=== PATIENT | female | born 1970 | race Caucasian/White ===

== ENCOUNTER → 2016-08-25 | Outpatient (CLI) | payer OTHER ==
--- NOTE | 2016-08-25 12:24 | REP ---
BILATERAL MAMMOGRAM: Family history of breast cancer in the maternal aunt and maternal grandmother. COMPARISON: 02/04/2015 as well as other prior exams. MLO and CC views of bilateral breasts again demonstrate moderately dense fibroglandular tissue. This limits the sensitivity of the mammogram. On the right MLO view, superiorly, there is a rounded density 1.6 cm in diameter which has enlarged. This was felt to represent a cyst by ultrasound on the prior study. I suspect two adjacent nodular opacities posteriorly in the left breast, only seen on the MLO view. These are in the range of 1 cm in diameter. There are no clustered microcalcifications. IMPRESSION: ACR 0 incomplete. Enlarging nodule in the upper right breast seen only on the MLO view is felt to represent an enlarging cyst. Recommend spot compression view, right breast MLO projection as well as an axillary CC view of the right breast. Ultrasound should also be performed. In the left breast, there appear to be two adjacent nodular opacities on the MLO view somewhat superiorly and posteriorly. These are not seen on the CC view. Recommend compression view left breast MLO projection, a left ML view and axillary CC view. Ultrasound should also be performed. BI-RADS/ACR category 0 mammogram, incomplete. Additional imaging and/or prior images are needed before a final assessment can be assigned. This mammogram was interpreted with the aid of an FDA-approved computer-aided detection system. A. Negative x-ray reports should not delay biopsy if a dominant or clinically suspicious mass is present. B. Four to eight percent of cancers are not identified by x-ray. C. Adenosis and dense breasts may obscure an underlying neoplasm. The patient states she/he had a clinical breast exam in August 2016. The patient letter being requested is M0
== END ==
LOC: M WHC 10:37
PROVIDERS: ATTEND Nurse Practitioner Family
DX: Z12.31 Encounter for screening mammogram for malignant neoplasm of breast (principal); R92.8 Other abnormal and inconclusive findings on diagnostic imaging of breast

== ENCOUNTER → 2016-09-12 | Outpatient (CLI) | payer OTHER ==
--- NOTE | 2016-09-13 08:49 | REP ---
DIGITAL DIAGNOSTIC BILATERAL MAMMOGRAPHY WITH CAD AND FOCUSED BILATERAL BREAST SONOGRAPHY: HISTORY: Screening mammography August 25, 2016 BIRADS category 0 due to bilateral nodular opacities. Dense breast parenchyma. Comparison mammography January 2015. Diagnostic imaging was recommended. MAMMOGRAPHIC FINDINGS: Diagnostic bilateral mammography is performed. Laterally exaggerated CC, true MLO and magnified focal spot compression images were obtained bilaterally. Breast parenchyma is somewhat nodular and heterogeneously dense bilaterally. A nodule persists in the upper outer quadrant on the right approximately 70 mm in greatest diameter. There is a nodule in the inferomedial left breast and two nodules are seen superiorly at approximate 12-o'clock position in the left breast. No spiculation is seen. No microcalcification or worrisome skin change is appreciated. SONOGRAPHIC FINDINGS: The right breast is scanned from 9-o'clock position to 12-o'clock position through the upper outer quadrant. There is a grouping of cysts at 12-o'clock position, the largest of which measures 10 mm. There is also a simple cyst at 12-o'clock position measuring 16 x 15 x 7 mm. At 9-o'clock position in the right breast there is a benign-appearing 4 mm lymph node. Heterogeneous fibroglandular background echotexture is seen. On the left, posterior the nipple at 6-o'clock position, there is a simple cyst measuring 17 x 21 x 10 mm. There is a grouping of cysts at 11 -o'clock position to 12-o'clock position in the left breast, the largest of which measures 20 x 12 x 5 mm. At 11-o'clock position there is a 10 x 8 x 5 mm cyst. No suspicious sonographic lesion is seen. IMPRESSION: BIRADS category 2 benign bilateral breast imaging. Bilateral breast cysts are confirmed. Repeat screening mammography recommended 1 year. BI-RADS/ACR category 2 mammogram. Benign finding(s). Routine annual screening mammography (for women over age 40). This mammogram was interpreted with the aid of an FDA-approved computer-aided detection system. The patient states she/he had a clinical breast exam in August 2016. The patient letter being requested M1 dense. Signed by Eber Britt MD 09/13/2016 05:07 P
== END ==
LOC: M RAD 15:59
PROVIDERS: ATTEND Nurse Practitioner Family
DX: R92.8 Other abnormal and inconclusive findings on diagnostic imaging of breast (principal)
CPT/HCPCS: 76642; G0204

== ENCOUNTER → 2018-02-13 | Outpatient (REF) | payer OTHER ==
[2018-02-16 14:47] LABS: HPV HYBRID CAPTURE II Negative (Negative)
== END ==
LOC: M SFHCWAGY 13:30
DX: Z12.4 Encounter for screening for malignant neoplasm of cervix (principal)

== ENCOUNTER → 2020-04-01 | Outpatient (CLI) | payer BC, OTHER ==
--- NOTE | 2020-04-01 15:20 | REP ---
INDICATION: N63.25,N63.15 MORENA BREAST LUMPS. Palpable lump in the right breast times 1-1/2 weeks. Lump on the left is been present since prior mammography May 22, 2019. Unchanged. COMPARISON: Mammography May 22, 2019 and February 13, 2018. TECHNIQUE: Bilateral CC and MLO) view(s) were taken. A skin marker is affixed to the skin at the site of the palpable lump on each side. Routine views are augmented by 3D tomography and magnified focal spot-compression images. Targeted bilateral breast sonography is carried. FINDINGS: Breast parenchyma is extremely dense as previously noted. This pattern may it decreases sensitivity mammography. There is a well-circumscribed 3.3 cm dominant density at 12 o'clock in the right breast. This may be a cyst. No spiculation is seen. No microcalcification is seen. No other mass lesion is seen on the right. In the left breast inferiorly and medially in the retroareolar region anteriorly, there is a 1.9 cm dominant density which is felt to be r slightly smaller than the density present in this location February 13 2018 when it measured 27 mm. This area measured 26 mm in greatest dimension on May 22, 2019. At that point it was due to cysts. The remainder of the left breast parenchyma is mammographically unremarkable. The Volpara volumetric breast density pattern is D. Targeted right breast sonography: Scanning of the right breast at the 12 o'clock position demonstrates heterogeneous background echotexture. There is a 3.1 x 2.7 x 1.8 cm simple cyst in the right breast with a benign appearance. No other suspicious sonographic findings. Targeted left breast sonography: Scanning in the left breast at 6-7 o'clock shows 2 simple cysts adjacent to 1 another accounting for the palpable lump in this location. These measure as follows: 1.5 x 1.8 x 1.0 cm and 1.6 x 2.3 x 0.8 cm. There are less than a cm from the nipple.. IMPRESSION: BIRADS/ACR category 2 benign mammographic and sonographic findings. Bilateral simple breast cysts account for the mammographic opacities and the corresponding palpable lumps in each breast. Clinical follow-up is advised.. This patient's Tyrer-Cuzick lifetime breast cancer risk assessment score is 18.9%. This mammogram was interpreted with the aid of an FDA-approved computer-aided detection system. The patient states she had a clinical breast exam in March of 2020. The patient letter being requested is M2 dense. RECOMMENDATION: Repeat screening mammography recommended 1 year (for women over 40). <Electronically signed by Juan David Britt > 04/01/20 [id number]
== END ==
LOC: M WHC 13:38
PROVIDERS: ATTEND Nurse Practitioner Family
DX: N60.01 Solitary cyst of right breast (principal); N60.02 Solitary cyst of left breast
CPT/HCPCS: 76642; 77066; G0279

== ENCOUNTER → 2020-04-16 | Outpatient (CLI) | payer SELFPAY | LOC: M LABSMTC 10:36 | PROVIDERS: ATTEND Pediatrics | DX: Z20.828 Contact with and (suspected) exposure to other viral communicable diseases (principal) ==

== ENCOUNTER → 2020-05-01 | Outpatient (REF) | payer BC, OTHER | LOC: M LAB REF 15:14 | PROVIDERS: ATTEND Radiology Diagnostic Radiology | DX: N60.01 Solitary cyst of right breast (principal) ==

== ENCOUNTER → 2020-05-25 | Outpatient (REF) | payer BC, OTHER | LOC: M SFHCWAGY 13:44 | PROVIDERS: ATTEND Nurse Practitioner Family | DX: Z12.4 Encounter for screening for malignant neoplasm of cervix (principal); Z01.419 Encounter for gynecological examination (general) (routine) without abnormal findings ==

== ENCOUNTER → 2020-06-08 | Outpatient (CLI) | payer BC, OTHER ==
--- NOTE | 2020-06-08 13:42 | REP ---
INDICATION: MORENA BREAST U/S/N64.9 BREAST LESION. Please evaluate hypoechoic lesion with irregular borders 12 o'clock, 3 cm from the nipple. History of a cyst aspirated at [facility] in this general location. COMPARISON: Comparison mammography 01 April 2020. Comparison sonography 01 April 2020.. TECHNIQUE: Scanning was performed in about the 12 o'clock region of the right breast. FINDINGS: The 12 o'clock, 2 cm from the nipple and directly retroareolar, there are 2 small simple cysts. These measure 0.6 x 0.6 x 0.3 cm and 0.6 x 0.7 x 0.5 cm. Previously noted large simple cyst is no longer apparent. Also at 12 o'clock, 3 cm from the nipple, there is a 1.0 x 0.9 x 0.5 cm ill-defined hypoechoic area which is not a simple cyst. This has internal blood flow. There is no acoustic shadowing. It is wider than tall, long axis parallel to the skin. Nonspecific. IMPRESSION: BI-RADS category 4 suspicious findings. Hypoechoic ill-defined area 12 o'clock position right breast does not appear to be a simple cyst. Ultrasound-guided needle biopsy with marker clip placement and post placement mammography recommended. <Electronically signed by Juan David Britt > 06/08/20 [id number]
== END ==
LOC: M WHC 08:24
PROVIDERS: ATTEND Surgery
DX: N63.15 Unspecified lump in the right breast, overlapping quadrants (principal); N60.01 Solitary cyst of right breast

== ENCOUNTER → 2020-06-24 | Outpatient (CLI) | payer BC, OTHER ==
[~2020-06-24] MED LIST: VITMTA PO
[2020-06-24 14:04] VITALS: BP 130/78
--- NOTE | 2020-06-24 14:30 | REP ---
INDICATION: R92.8 ABN US RT BREAST,POST US GUIDED BIOPSY. COMPARISON: 04/01/2020. TECHNIQUE: MLO and CC views right breast performed following ultrasound-guided sampling of a nodule at 12 o'clock right breast. FINDINGS: Biopsy clip is seen in the region of the previously noted nodule which now appears significantly smaller. IMPRESSION: Biopsy clip deployed at the site of a previously noted nodule, now appears smaller or resolved. RECOMMENDATION: Clinical follow-up. <Electronically signed by Arian Rico > 06/24/20 [id number]
--- NOTE | 2020-06-24 16:58 | REP ---
INDICATION: R92.8 ABN US RT MAMMO, US GUIDED BIOPSY. COMPARISON: 06/08/2020. TECHNIQUE: Real-time sonographic guidance was provided for Dr. Hall, for ultrasound-guided biopsy of a right breast nodule at the 12 o'clock position. FINDINGS: An irregular hypoechoic nodule is visualized sonographically the 12 o'clock position of the right breast approximately 3 cm from the nipple. Ultrasound guidance was provided for Dr. Hall who performed ultrasound-guided biopsy of this lesion. IMPRESSION: Ultrasound guidance provided for Dr. Hall who performed ultrasound-guided biopsy of a nodule at 12 o'clock right breast. RECOMMENDATION: Clinical follow-up. <Electronically signed by Arian Rico > 06/24/20 [id number]
--- NOTE | 2020-06-25 17:33 | ROOPDOC ---
[facility] Report Of Operation Report of Operation DATE OF PROCEDURE: 06/24/20 DIAGNOSIS: right breast suspicious lesion PROCEDURE: Ultrasound guided biopsy of right breast suspicious lesion with clip placement SURGEON: Pop Alcantar BLOOD LOSS: minimal COMPLICATIONS: none Lidocaine 1% LOT [id number] Expiration 07/2023 Sodium Bicarbonate 8.4% LOT [id number] Expiration 07/2020 Hydromark clip LOT [id number] Expiration 09/2022 SHAPE : 3 Bx device: BARD [id number] x10 cm LOT [id number] Expiration 02/2023 Informed consent was obtained. The most common risk and possible complications including bleeding, hematoma, bruising, infection, injury to surrounding structures were explained to the patient and the patient expressed understanding. Patient was placed on the bed in the supine position. Appropriate time out was done stating patients name, date of , and the procedure to be performed. The right breast was prepped and draped in the usual fashion. The ultrasound was used to confirm the location of the lesion in the right breast at 12:00 3 centimeters from the nipple. Plain Lidocaine 1% and 8.4% sodium bicarbonate 10:1 mix was used to anesthetize the skin, the biopsy site and tissues along the anticipated biopsy tract. Small skin incision was made with blade number 11. BARD Marquee 14G cannula with introducer ([id number]) was inserted through the incision and advanced under the ultrasound guidance to position immediately adjacent to the lesion. Next, the introducer was removed and BARD Marquee 14G biopsy device was places in the cannula. Pre-biopsy imaging, and post-biopsy imaging were captured. Five good core biopsies were taken at various levels of the lesion. Specimen was placed in formaldehyde, labeled with appropriate biopsy site and patients name, and sent to pathology for evaluation. Next, the biopsy device was withdrawn and a clip introducer was inserted into the biopsy site via the cannula. The SHAPE 3 Hydromark clip was deployed under sonographic guidance. Post-clip placement image was captured. Manual pressure over the biopsy cavity and tract was held after the clip introducer was withdrawn. No bleeding was noted upon removal of the pressure. Post-biopsy mammogram of the right breast was obtained and showed clip in expected position on MLO view. CC view was unable to show the clip, likely due to posterior location. Postprocedural dressing was placed. Patient tolerated procedure well. Discharge instructions were discussed with the patient and the patient expressed understanding. POP ALCANTAR DO Jun 25, 2020 17:33
== END ==
LOC: M WHCPRO 12:43
PROVIDERS: ATTEND Surgery
DX: N64.89 Other specified disorders of breast (principal)

== ENCOUNTER → 2020-12-14 | Outpatient (CLI) | payer BC, OTHER ==
--- NOTE | 2020-12-14 09:21 | REP ---
INDICATION: N64.9 RT BREAST 6 MO POST BX,ASSESS STABILITY. COMPARISON: 06/08/2020. TECHNIQUE: Real-time sonographic evaluation of right breast performed. FINDINGS: A biopsy clip is seen at the 12 o'clock position of the right breast. The previously noted hypoechoic nodular structure is not visualized. IMPRESSION: BIRADS/ACR category 2, benign ultrasound right breast 12 o'clock. A biopsy clip is seen at the 12 o'clock position. The previously noted hypoechoic nodular structures not visualized. RECOMMENDATION: Clinical follow-up. <Electronically signed by Arian Rico > 12/14/20 [id number]
== END ==
LOC: M WHC 08:31
PROVIDERS: ATTEND Surgery
DX: N64.9 Disorder of breast, unspecified (principal)

== ENCOUNTER → 2021-08-17 | Outpatient (REF) | payer BC, OTHER | LOC: M PLALAB 09:13 | PROVIDERS: ATTEND Advanced Practice Midwife | DX: Z12.4 Encounter for screening for malignant neoplasm of cervix (principal) | CPT/HCPCS: 87624; G0123 ==

== ENCOUNTER → 2022-09-05 | Outpatient (CLI) | payer BC, OTHER | LOC: M WHC 08:36 | PROVIDERS: ATTEND Advanced Practice Midwife | DX: R92.8 Other abnormal and inconclusive findings on diagnostic imaging of breast (principal); Z12.31 Encounter for screening mammogram for malignant neoplasm of breast ==

== ENCOUNTER → 2022-09-05 | Outpatient (REF) | payer BC, OTHER | LOC: M SFHCWAGY 13:04 | PROVIDERS: ATTEND Advanced Practice Midwife | DX: Z12.4 Encounter for screening for malignant neoplasm of cervix (principal); N95.2 Postmenopausal atrophic vaginitis | CPT/HCPCS: 87624; G0123 ==

== ENCOUNTER → 2023-07-19 | Outpatient (CLI) | payer BC, OTHER | LOC: M RAD 15:45 | PROVIDERS: ATTEND Family Medicine | DX: E04.1 Nontoxic single thyroid nodule (principal) ==

== ENCOUNTER → 2024-02-06 | Outpatient (CLI) | payer BC, OTHER | LOC: M WHC 08:16 | PROVIDERS: ATTEND Advanced Practice Midwife | DX: N63.20 Unspecified lump in the left breast, unspecified quadrant (principal); N60.02 Solitary cyst of left breast | CPT/HCPCS: 76642; 77066; G0279 ==

== ENCOUNTER → 2025-01-27 | Outpatient (REF) | payer BC, OTHER | LOC: M SFHCWAGY 10:01 | PROVIDERS: ATTEND Advanced Practice Midwife | DX: Z01.419 Encounter for gynecological examination (general) (routine) without abnormal findings (principal); Z77.9 Other contact with and (suspected) exposures hazardous to health ==